=== PATIENT | male | born 2000 ===

== ENCOUNTER 2024-06-08 12:50 | Emergency (ER) | payer SELFPAY ==
[~2024-06-08] VITALS: Ht 170.2 cm; Wt 66.8 kg
[2024-06-08 13:08] VITALS: TEMP 98.7
[2024-06-08] MEDS: ONDANSETRON HCL 4 MG/2 ML VIAL IVP ONE (14:23)
[2024-06-08] MEDS ORDERED: NALO4SPR NASAL (15:02)
[2024-06-08 16:07] VITALS: BP 132/74; PULSE 88; RESP 16; O2SAT 99
== END 2024-06-08 16:23 | disposition home or self-care (01) ==
LOC: EMS 12:52
DX: T40.411A Poisoning by fentanyl or fentanyl analogs, accidental (unintentional), initial encounter (principal); R40.2A Nontraumatic coma due to underlying condition; Y92.89 Other specified places as the place of occurrence of the external cause
CPT/HCPCS: 99283; 71045; J2405